=== PATIENT | male | born 1975 | race American Indian/Alaskan Native ===

== ENCOUNTER 2017-10-10 07:22 | Inpatient (IN) | payer OTHER ==
[2017-10-10 08:30] LABS: Basophils # (Auto) 0.1 K/mm3 (0.0-0.1); Basophils % (Auto) 0.8 % (0.0-1.8); Eosinophils # (Auto) 0.1 K/mm3 (0.0-0.4); Eosinophils % (Auto) 0.7 % (0.0-4.3); Hematocrit 45.7 % (35.5-45.6); Hemoglobin 16.2 gm/dl (11.8-15.2); Lymphocytes # (Auto) 2.3 K/mm3 (1.2-5.4); Lymphocytes % (Auto) 23.8 % (13.4-35.0); Mean Corpuscular HGB Conc 36 % (32-34); Mean Corpuscular Hemoglobin 31 pg (28-32); Mean Corpuscular Volume 87 fl (84-94); Monocytes # (Auto) 0.6 K/mm3 (0.0-0.8); Monocytes % (Auto) 6.7 % (0.0-7.3); Platelet Count 315 K/mm3 (140-440); Red Blood Count 5.24 M/mm3 (3.65-5.03); Red Cell Distribution Width 12.6 % (13.2-15.2)
[2017-10-10 08:44] LABS: Alanine Aminotransferase 43 units/L (7-56); Albumin 4.5 g/dL (3.9-5); BUN/Creatinine Ratio 15; Blood Urea Nitrogen 9 mg/dL (9-20); Calcium 9.2 mg/dL (8.4-10.2); Hemolysis Index 41
[2017-10-10] MEDS ORDERED: TORADOL IV ONE (08:56)
[2017-10-10] MEDS ORDERED: NACL 0.9% 1000 ML 1,000 ML IV ONE (08:56)
[2017-10-10] MEDS ORDERED: CATAPRES PO ONE (08:56)
[2017-10-10] MEDS ORDERED: ZOFRAN IV ONE (08:56)
[2017-10-10] MEDS ORDERED: NORCO 5/325 PO ONE (08:56)
--- NOTE | 2017-10-10 10:02 | Cat Scan Report ---
CT ABDOMEN PELVIS WITH CONTRAST: HISTORY: Chronic umbilical hernia, pain, nausea and vomiting. COMPARISON: none. TECHNIQUE: Helical CT in 1.25mm intervals following IV contrast. Sagittal and coronal reconstructions. FINDINGS: Lung bases: Normal. Liver: Mild fatty changes noted throughout the liver. No evidence for mass or surface nodularity. Biliary system: Normal. Pancreas: Normal. Spleen: Normal. Kidneys/ureters/bladder: Normal. Adrenal glands: Normal. Aorta: Normal. Intestines: Normal. Appendix: Normal. Pelvic viscera: Normal. Ascites: None. Adenopathy: None. Musculoskeletal: An umbilical hernia with a 2.0 cm neck is identified which contains omentum. The hernia sac measures 4.2 cm in diameter. No bowel loops are incorporated. IMPRESSION: Umbilical hernia containing fat as described. Mild hepatic steatosis. No acute inflammatory process is appreciated.
--- NOTE | 2017-10-10 10:07 | Cat Scan Report ---
FINAL REPORT EXAM: CT HEAD/BRAIN WO CON HISTORY: trejo, htn TECHNIQUE: CT of the Head without IV contrast. PRIORS: None currently available. FINDINGS: Heterogeneous area of decreased attenuation noted within the right cerebellar hemisphere on series 2:10 may be related to ischemia or edema and mass. There is an irregular soft tissue density within the low-attenuation area which is suspicious for mass. There may be a slight midline shift as the 4th ventricle appears slightly effaced. No other lesions are areas of decreased attenuation identified. There is no hemorrhage. There is no hydrocephalus. Age appropriate drake-white matter attenuation is noted. There is no calvarial fracture. The temporal bones demonstrate aerated mastoid air cells. The middle ears appear unremarkable. Paranasal sinuses are unremarkable. Globes are intact. IMPRESSION: Heterogeneous ill-defined area in the right cerebellar hemisphere. Findings could be related to ischemia or mass. Further imaging with a CT brain with contrast or MRI of the brain with and without contrast if clinically indicated. Salo level II finding report initiated.
[2017-10-10 12:28] LABS: Bilirubin,Urine NEG (Negative); Blood,Urine NEG (Negative); Color,Urine Yellow (Yellow); Mucus,Urine FEW /HPF; Protein,Urine <15 mg/dL mg/dL (Negative); WBC,Urine < 1.0 /HPF (0.0-6.0)
--- NOTE | 2017-10-10 14:01 | Magnetic Resonance Report ---
MRI BRAIN WITH/WITHOUT CONTRAST: History: Abnormal CT brain, stroke, mass. Technique: Multiple T1 and T2 weighted images were obtained in multiple planes. Axial diffusion and gradient imaging was performed. Post contrast T1 images in two planes were obtained following IV gadolinium. Findings: Compared to the CT head without contrast performed earlier the same day. MRI demonstrates a moderate sized area of diffusion restriction in the inferior right cerebellar hemisphere measuring up to 4.5 x 4.9 cm in axial plane. This is consistent with subacute ischemia. There is mild mass effect on the fourth ventricle but no evidence for effacement or hydrocephalus. No additional areas of diffusion restriction are identified. There are scattered foci of increased T2 signal in the periventricular and subcortical white matter which appear advanced for this persons age. This is a nonspecific finding but could be related to chronic small vessel disease or other etiology. No evidence for hemorrhage, mass or extra-axial fluid collection. Ventricular size is normal and symmetric. The basal cisterns are clear. The brainstem and cerebellar hemispheres are within normal limits. The fourth ventricle is midline. The paranasal sinuses and mastoid air cells are well aerated. Normal flow voids are identified in the appropriate vessels at the [place]. No abnormal enhancement is identified following IV gadolinium. Impression: Moderate sized area of subacute ischemia in the right cerebellar hemisphere as described. This appears to involve the posterior, inferior cerebellar artery territory. No evidence for mass or hemorrhage
--- NOTE | 2017-10-10 14:17 | Emergency Department Report ---
ED Headache HPI - General Chief Complaint: Abdominal Pain Stated Complaint: HEADACHE/HIGH BP Time Seen by Provider: 10/10/17 08:44 Source: patient Exam Limitations: no limitations - History of Present Illness Initial Comments: 41 yo a past medical history of tobacco use, hypertension and umbilical hernia presents to the hospital with headache, elevated blood pressure, and abdominal pain with vomiting for the past 2 days. Patient was diagnosed with elevated blood pressure during the ED visit at [place] one year ago. Patient has never taken medication or followed up with her primary care doctor. For the past 3 days patient has had a constant headache to the back of his head that is moderate in intensity. Mild blurred vision reported since yesterday. Patient having intermittent periumbilical abdominal pain and has vomited twice a day over the last 2 days. The patient diarrhea, sick contacts, or recent travel. Focal weakness, numbness, or ataxia Allergies/Adverse Reactions: Allergies No Known Allergies Allergy (Verified 10/10/17 08:02) Home Medications: Ambulatory Orders No Known Home Medications [No Reported Home Medications] 10/10/17 ED Review of Systems ROS: Stated complaint: HEADACHE/HIGH BP Other details as noted in HPI Comment: All other systems reviewed and negative Other: Constitutional: No fevers chills Eyes: As per HPI ENT: No ear pain or throat pain Neck: Denies pain Respiratory: Denies cough wheezing shortness of breath Cardiovascular: Denies chest pain, palpitations, syncope GI: As per HPI : Denies dysuria Musculoskeletal: Denies back pain Skin: Denies rash, lesions, erythema Neurologic: As per HPI Psychiatric: Denies suicidal ideation, hallucinations ED Past Medical Hx - Past Medical History Previous Medical History?: Yes Hx Hypertension: Yes Additional medical history: Hernia - Surgical History Past Surgical History?: No - Social History Smoking Status: Current Every Day Smoker Substance Use Type: None - Medications Home Medications: Home Medications Medication Instructions Recorded Confirmed Last Taken Type No Known Home Medications [No 10/10/17 10/10/17 Unknown History Reported Home Medications] ED Physical Exam - General Limitations: No Limitations - Other Other exam information: General: No limitations, patient is alert in no acute distress Head exam: Atraumatic, normocephalic Eyes exam: Normal appearance, pupils equal reactive to light, extraocular movements intact ENT: Moist mucous membrane, normal oropharynx Neck exam: Normal inspection, full range of motion, no meningismus nontender Respiratory exam: Clear to auscultation bilateral, no wheezes, rales, crackles Cardiovascular: Normal rate and rhythm, normal heart sounds Abdomen: Soft, nondistended, reducible umbilical hernia with mild upper abdominal tenderness. normal bowel sounds, no rebound, or guarding Extremity: Full range of motion normal inspection no deformity Back: Normal Inspection, full range of motion, no tenderness Neurologic: Alert, oriented x3, cranial nerves intact, no motor or sensory deficit, [id number] motion intact Psychiatric: normal affect, normal mood Skin: Warm, dry, intact ED Course Vital Signs 10/10/17 10/10/17 10/10/17 07:56 08:00 08:02 Temperature 98.9 F Pulse Rate 78 71 95 H Respiratory 26 H 24 18 Rate Blood Pressure 204/130 204/120 O2 Sat by Pulse 100 95 100 Oximetry 10/10/17 10/10/17 10/10/17 08:09 08:15 08:30 Temperature 98.7 F Pulse Rate 82 73 Respiratory 22 21 Rate Blood Pressure 204/130 204/130 O2 Sat by Pulse 100 Oximetry 10/10/17 10/10/17 10/10/17 08:46 09:00 09:11 Temperature Pulse Rate 74 79 87 Respiratory 16 17 18 Rate Blood Pressure 192/98 196/98 O2 Sat by Pulse Oximetry 10/10/17 10/10/17 10/10/17 09:14 09:41 09:58 Temperature Pulse Rate Respiratory 18 16 Rate Blood Pressure 192/98 O2 Sat by Pulse 100 100 Oximetry 10/10/17 10/10/17 10/10/17 10:00 10:06 10:16 Temperature Pulse Rate 75 67 Respiratory 17 16 18 Rate Blood Pressure 192/98 217/129 O2 Sat by Pulse 100 100 Oximetry 10/10/17 10/10/17 10/10/17 10:30 10:46 11:00 Temperature Pulse Rate 79 80 Respiratory 25 H 13 22 Rate Blood Pressure 192/98 192/98 168/113 O2 Sat by Pulse 98 98 99 Oximetry 10/10/17 10/10/17 10/10/17 11:24 11:30 11:46 Temperature Pulse Rate 66 62 Respiratory 33 H 12 17 Rate Blood Pressure 168/113 168/113 168/113 O2 Sat by Pulse Oximetry 10/10/17 10/10/17 12:00 13:30 Temperature Pulse Rate 62 Respiratory 15 Rate Blood Pressure 170/108 184/115 O2 Sat by Pulse Oximetry - Reevaluation(s) Reevaluation #1: 10/10/17 15:09 Patient received Clonidine 0.2 with mild reduction in blood pressure. Since initial dose of pain and nausea medication patient has remained asymptomatic. Also received 1 L normal saline ED Medical Decision Making - Lab Data Result diagrams: 10/10/17 08:23 10/10/17 08:23 Lab Results 10/10/17 10/10/17 10/10/17 Range/Units 08:23 08:23 08:44 WBC 9.6 (4.5-11.0) K/mm3 RBC 5.24 H (3.65-5.03) M/mm3 Hgb 16.2 H (11.8-15.2) gm/dl Hct 45.7 H (35.5-45.6) % MCV 87 (84-94) fl MCH 31 (28-32) pg MCHC 36 H (32-34) % RDW 12.6 L (13.2-15.2) % Plt Count 315 (140-440) K/mm3 Lymph % (Auto) 23.8 (13.4-35.0) % [place] % (Auto) 6.7 (0.0-7.3) % Eos % (Auto) 0.7 (0.0-4.3) % Baso % (Auto) 0.8 (0.0-1.8) % Lymph # 2.3 (1.2-5.4) K/mm3 C[place]ay # 0.6 (0.0-0.8) K/mm3 Eos # 0.1 (0.0-0.4) K/mm3 Baso # 0.1 (0.0-0.1) K/mm3 Seg Neutrophils % 68.0 (40.0-70.0) % Seg Neutrophils # 6.5 (1.8-7.7) K/mm3 Sodium 134 L (137-145) mmol/L Potassium 4.1 (3.6-5.0) mmol/L Chloride 93.3 L (98-107) mmol/L Carbon Dioxide 27 (22-30) mmol/L Anion Gap 18 mmol/L BUN 9 (9-20) mg/dL Creatinine 0.6 L (0.8-1.5) mg/dL Estimated GFR > 60 ml/min BUN/Creatinine Ratio 15 % Glucose 124 H (75-100) mg/dL Calcium 9.2 (8.4-10.2) mg/dL Total Bilirubin 0.70 (0.1-1.2) mg/dL AST 28 (5-40) units/L ALT 43 (7-56) units/L Alkaline Phosphatase 101 (35-129) units/L Troponin T (0.00-0.029) ng/mL Total Protein 8.4 H (6.3-8.2) g/dL Albumin 4.5 (3.9-5) g/dL Albumin/Globulin Ratio 1.2 % Lipase 73 H (13-60) units/L Urine Color (Yellow) Urine Turbidity (Clear) Urine pH (5.0-7.0) Ur Specific [place] (1.003-1.030) Urine Protein (Negative) mg/dL Urine Glucose (UA) (Negative) mg/dL Urine Ketones (Negative) mg/dL Urine Blood (Negative) Urine Nitrite (Negative) Urine Bilirubin (Negative) Urine Urobilinogen (<2.0) mg/dL Ur Leukocyte Esterase (Negative) Urine WBC (Auto) (0.0-6.0) /HPF Urine RBC (Auto) (0.0-6.0) /HPF U Epithel Cells (Auto) (0-13.0) /HPF Urine Mucus /HPF 10/10/17 10/10/17 Range/Units 08:44 12:18 WBC (4.5-11.0) K/mm3 RBC (3.65-5.03) M/mm3 Hgb (11.8-15.2) gm/dl Hct (35.5-45.6) % MCV (84-94) fl MCH (28-32) pg MCHC (32-34) % RDW (13.2-15.2) % Plt Count (140-440) K/mm3 Lymph % (Auto) (13.4-35.0) % [place] % (Auto) (0.0-7.3) % Eos % (Auto) (0.0-4.3) % Baso % (Auto) (0.0-1.8) % Lymph # (1.2-5.4) K/mm3 [place]ay # (0.0-0.8) K/mm3 Eos # (0.0-0.4) K/mm3 Baso # (0.0-0.1) K/mm3 Seg Neutrophils % (40.0-70.0) % Seg Neutrophils # (1.8-7.7) K/mm3 Sodium (137-145) mmol/L Potassium (3.6-5.0) mmol/L Chloride (98-107) mmol/L Carbon Dioxide (22-30) mmol/L Anion Gap mmol/L BUN (9-20) mg/dL Creatinine (0.8-1.5) mg/dL Estimated GFR ml/min BUN/Creatinine Ratio % Glucose (75-100) mg/dL Calcium (8.4-10.2) mg/dL Total Bilirubin (0.1-1.2) mg/dL AST (5-40) units/L ALT (7-56) units/L Alkaline Phosphatase (35-129) units/L Troponin T < 0.010 (0.00-0.029) ng/mL Total Protein (6.3-8.2) g/dL Albumin (3.9-5) g/dL Albumin/Globulin Ratio % Lipase (13-60) units/L Urine Color Yellow (Yellow) Urine Turbidity Clear (Clear) Urine pH 6.0 (5.0-7.0) Ur Specific [place] > 1.059 H (1.003-1.030) Urine Protein <15 mg/dl (Negative) mg/dL Urine Glucose (UA) Neg (Negative) mg/dL Urine Ketones Tr (Negative) mg/dL Urine Blood Neg (Negative) Urine Nitrite Neg (Negative) Urine Bilirubin Neg (Negative) Urine Urobilinogen 4.0 (<2.0) mg/dL Ur Leukocyte Esterase Neg (Negative) Urine WBC (Auto) < 1.0 (0.0-6.0) /HPF Urine RBC (Auto) 1.0 (0.0-6.0) /HPF U Epithel Cells (Auto) < 1.0 (0-13.0) /HPF Urine Mucus Few /HPF - EKG Data -: EKG Interpreted by Sd EKG shows normal: sinus rhythm, axis (40), QRS complexes (105), ST-T waves ( eraly repol, no stemi) Rate: normal (72) - EKG Data When compared to previous EKG there are: previous EKG unavailable - Radiology Data Radiology results: report reviewed read by radiologist Abdomen and pelvis with IV contrast: Umbilical hernia containing fat. Mild hepatic steatosis. No acute inflammatory process is suspected CT head: Ill defined heterogeneous area in the right cerebellar hemisphere. Findings could be related to ischemia or mass. Further imaging recommended if clinically indicated. MRI with and without contrast: Moderate size area of subacute ischemia in the right cerebellar hemisphere measuring 4.5 x 4.9 cm in the axial plane. This appears to involve the posterior inferior cerebellar artery territory. No Evidence of mass or hemorrhage - Medical Decision Making Subacute stroke not a tpa candidate since subacute cva MRI confirms the patient had signs of subacute infarct and not a mass Patient had a cerebral stroke risk factors including tobacco use hypertension with medication noncompliance and failure to follow up Nonfocal neuro exam Patient needs to see clonidine but further blood pressure reduction would not be attempted at this time given findings of subacute stroke. hospitalist to manage furthter Aspirin provided Abdominal pain/nausea vomiting Controlled with meds in the ED No acute abdominal findings Hospitalist informed for admission - Differential Diagnosis CVA, stroke, hemorrhage, mass, gastritis, pancreatitis, biliary colic Critical Care Time: No Critical care attestation.: If time is entered above; I have spent that time in minutes in the direct care of this critically ill patient, excluding procedure time. ED Disposition Clinical Impression: CVA (cerebral vascular accident), Cerebellar stroke, Uncontrolled hypertension , Noncompliance with medication regimen, Tobacco use Disposition: -09 OP ADMIT IP TO THIS HOSP Is pt being admited?: Yes Condition: Stable Time of Disposition: 14:16 (Dr Kong/hosp) - Assessment Assessment Interval: Baseline - Level of Consciousness 1a. Level of Consciousness: alert - LOC Questions 1b. LOC Questions: answers correctly - LOC Command 1c. LOC Commands: performs tasks correctly - Best Gaze 2. Best Gaze: normal - Visual 3. Visual: no visual loss - Facial Palsy 4. Facial Palsy: normal symmetrical movement - Motor Arm 5b. Motor Arm Right: no drift 5a. Motor Arm Left: no drift - Motor Leg 6a. Motor Leg Left: no drift 6b. Motor Leg Right: no drift - Limb Ataxia 7. Limb Ataxia: absent - Sensory 8. Sensory: normal - Best Language 9. Best Language: no aphasia - Dysarthria 10. Dysarthria: normal - Extinction and Inattention 11. Extinction/Inattention: no abnormality - Scoring Total Score: 0 Stroke Severity: No Stroke Symptoms
[2017-10-10] MEDS ORDERED: ASPIRIN PO ONE (14:50)
[2017-10-10] MEDS ORDERED: SODIUM CHLORIDE FLUSH SYRINGE 10 ML IV PRN (15:08)
[2017-10-10] MEDS ORDERED: DULCOLAX PR PRN (15:08)
[2017-10-10] MEDS ORDERED: MILK OF MAGNESIA PO PRN (15:08)
[2017-10-10] MEDS ORDERED: REGLAN PO PRN (15:08)
[2017-10-10] MEDS ORDERED: TYLENOL PO PRN (15:08)
[2017-10-10] MEDS ORDERED: ZOFRAN IV PRN (15:08)
[2017-10-10] MEDS ORDERED: PHENERGAN PR PRN (15:08)
[2017-10-10] MEDS ORDERED: PROVENTIL IH PRN (15:23)
--- NOTE | 2017-10-10 15:31 | History and Physical Report ---
History of Present Illness Chief complaint: My head hurts, My stomach hurts History of present illness: 41 YO Male with HTN, Nicotine Dependence, Medication noncompliance presents to ED for evaluation. Pt states that he has experienced a severe headache, hgh blood pressure, and abdominal pain over the past 2 days. Pt noncompliant with outpatient antihypertensive medication, and lost to outpatient f/u care. Pt states that he has a posterior headache, that is severe, and is associated with blurred vision over the past 1 day. Pt also reports abdomnal pain that is periumbilical, associated with 2 episodes of vomiting. Pt denies fever, chills, CP, Palpitations, Diarrhea, BRBPR, recent ill contacts, ingestion of food/water from new/different sources, ataxia, recent ill contacts, prolonged travel/ immobility, leg swelling, calf pain, individual/family history of DVT/PE, or sudden cardiac . Pt seen and evaluated in ED and found to have Hypertensive emergency with blood pressure of 217/129, as well as R PICA CVA. Pt outside therapeutic window for TPA. Pt admitted to telemetry and treated IAW stroke protocol. Past History Past Medical History: hypertension, other (Noncompliance, ) Past Surgical History: No surgical history, Other (reviewed) Social history: , lives with family, smoking. denies: alcohol abuse, prescription drug abuse, IV drug use Family history: hypertension Medications and Allergies Allergies Allergy/AdvReac Type Severity Reaction Status Date / Time No Known Allergies Allergy Verified 10/10/17 08:02 Home Medications Medication Instructions Recorded Confirmed Last Taken Type No Known Home Medications [No 10/10/17 10/10/17 Unknown History Reported Home Medications] Active Meds: Active Medications Acetaminophen (Tylenol) 650 mg PO Q4H PRN PRN Reason: Pain, Mild (1-3) Albuterol (Proventil) 2.5 mg IH Q3HRT PRN PRN Reason: Shortness Of Breath Aspirin (Aspirin) 325 mg PO QDAY MICA Bisacodyl (Dulcolax) 10 mg LA QDAY PRN PRN Reason: Constipation Magnesium Hydroxide (Milk Of Magnesia) 30 ml PO Q4H PRN PRN Reason: Constipation Metoclopramide HCl (Reglan) 10 mg PO Q6H PRN PRN Reason: Nausea And Vomiting Ondansetron HCl (Zofran) 4 mg IV Q8H PRN PRN Reason: N/V unrelieved by Reglan Promethazine HCl (Phenergan) 25 mg LA Q6H PRN PRN Reason: Nausea And Vomiting Sodium Chloride (Sodium Chloride Flush Syringe 10 Ml) 10 ml INJ PRN PRN PRN Reason: LINE FLUSH Review of Systems Constitutional: no weight loss, no weight gain, no fever, no chills, no sweats, no anorexia Ears, nose, mouth and throat: no ear pain, no ear discharge, no tinnitis, no decreased hearing, no nose pain, no nasal congestion, no nasal discharge Cardiovascular: no chest pain, no orthopnea, no palpitations, no rapid/ irregular heart beat, no edema, no syncope, no lightheadedness Respiratory: no cough, no cough with sputum, no excessive sputum, no hemoptysis , no shortness of breath, no dyspnea on exertion Gastrointestinal: abdominal pain, vomiting, no change in bowel habits, no hematemesis, no coffee ground emesis, no BRBPR, no melena, no hematochezia, no loss of appetite, no early satiety Genitourinary Male: no dysuria, no hematuria, no flank pain, no discharge, no urinary frequency, no urinary hesitancy Rectal: no pain, no incontinence, no bleeding Musculoskeletal: no neck stiffness, no neck pain, no shooting arm pain, no arm numbness/tingling, no low back pain, no shooting leg pain Integumentary: no rash, no pruritis, no redness, no sores, no wounds, no jaundice Neurological: headaches, no transient paralysis, no paralysis, no weakness, no parathesias, no numbness, no tingling, no seizures Psychiatric: no memory loss, no change in sleep habits, no sleep disturbances, no insomnia, no hypersomnia, no change in appetite, no change in libido Endocrine: no cold intolerance, no polyphagia, no excessive thirst, no polydipsia, no polyuria, no nocturia Hematologic/Lymphatic: no easy bruising, no easy bleeding, no lymphadenopathy, no lymphedema Allergic/Immunologic: no urticaria, no allergic rhinitis, no wheezing, no persistent infections, no anaphylaxis, no angioedema Exam - Constitutional Vitals: Temp Pulse Resp BP Pulse Ox 98.7 F 62 15 184/115 99 10/10/17 08:09 10/10/17 12:00 10/10/17 12:00 10/10/17 13:30 10/10/17 11:00 General appearance: Present: mild distress - EENT Eyes: Present: PERRL ENT: hearing intact, clear oral mucosa - Neck Neck: Present: supple, normal ROM - Respiratory Respiratory effort: normal Respiratory: bilateral: CTA - Cardiovascular Heart Sounds: Present: S1 & S2. Absent: rub, click - Extremities Extremities: pulses symmetrical, No edema Peripheral Pulses: within normal limits - Abdominal General gastrointestinal: Present: soft, non-tender, non-distended, normal bowel sounds Male genitourinary: Present: normal - Integumentary Integumentary: Present: clear, warm, dry - Musculoskeletal Musculoskeletal: gait normal, strength equal bilaterally - Psychiatric Psychiatric: appropriate mood/affect, intact judgment & insight - Neurologic Neurologic: moves all extremities, no gait normal Results - Labs CBC & Chem 7: 10/10/17 08:23 10/10/17 08:23 Labs: Abnormal lab results 10/10/17 10/10/17 10/10/17 Range/Units 08:23 08:23 08:44 RBC 5.24 H (3.65-5.03) M/mm3 Hgb 16.2 H (11.8-15.2) gm/dl Hct 45.7 H (35.5-45.6) % MCHC 36 H (32-34) % RDW 12.6 L (13.2-15.2) % Sodium 134 L (137-145) mmol/L Chloride 93.3 L (98-107) mmol/L Creatinine 0.6 L (0.8-1.5) mg/dL Glucose 124 H (75-100) mg/dL Total Protein 8.4 H (6.3-8.2) g/dL Lipase 73 H (13-60) units/L Ur Specific [place] (1.003-1.030) 10/10/17 Range/Units 12:18 RBC (3.65-5.03) M/mm3 Hgb (11.8-15.2) gm/dl Hct (35.5-45.6) % MCHC (32-34) % RDW (13.2-15.2) % Sodium (137-145) mmol/L Chloride (98-107) mmol/L Creatinine (0.8-1.5) mg/dL Glucose (75-100) mg/dL Total Protein (6.3-8.2) g/dL Lipase (13-60) units/L Ur Specific [place] > 1.059 H (1.003-1.030) Assessment and Plan - Patient Problems (1) CVA (cerebral vascular accident) Current Visit: Yes Status: Acute Qualifiers: Precerebral and cerebral artery: posterior cerebral artery Laterality of affected vessel: right Plan to address problem: Stroke Protocol: CT head, MRI Brain, MRA Brain, Echo, Carotid Doppler, Antiplatelet therapy, PT/OT/ Speech Therapy, lipid panel (2) Hypertensive emergency Current Visit: Yes Status: Acute Plan to address problem: Permissive hypertension overnight. Pt systolic 217 on admission. Gaol systolic overnight 160-180 to maintain cerebral perfusion, hold oral antihypertensive therapy for now. IV hydralazine prn for systolic above 200. (3) Abdominal pain Current Visit: Yes Status: Acute Qualifiers: Abdominal location: periumbilical Qualified Code(s): R10.33 - Periumbilical pain Plan to address problem: CT Abdomen Pelvis, omental hernia. diet as tolerated, supportive care, repeat physical exam. (4) Noncompliance with medication regimen Current Visit: Yes Status: Acute Plan to address problem: Pt counseled, (5) DVT prophylaxis Current Visit: Yes Status: Acute
--- NOTE | 2017-10-10 16:32 | Magnetic Resonance Report ---
FINAL REPORT EXAM: MR MRA/MRV HEAD WO CON HISTORY: stroke TECHNIQUE: MRA of the Head without IV contrast. PRIORS: None currently available. FINDINGS: Slight lobulated irregularity of both A1 and M1 segments. Similar irregularity noted in both P segments. Irregularity of the cavernous carotids and the right less dominant vertebral artery. Lobulated irregularity of both vertebral arteries. The less dominant right vertebral artery is more notable compared to left. No aneurysm. No dissection. No hemodynamically significant stenosis. IMPRESSION: Overall lobulated irregularity of the anterior and posterior circulations suggests vasculitis. Please correlate clinically.
[2017-10-11 07:33] LABS: Chol/HDL Ratio 9.12 %
[2017-10-11] MEDS: APRESOLINE PO SCH ×2 (08:47→13:30)
[2017-10-11] MEDS ORDERED: NORMODYNE IV PRN ×2 (09:00→12:56)
[2017-10-11] MEDS ORDERED: ASPIRIN PO SCH (10:00)
[2017-10-11] MEDS ORDERED: NORMODYNE 200 MG in D5W 160 ML IV ONE (12:56)
[2017-10-11] MEDS ORDERED: BREVIBLOC DRIP 2.5GM/250ML 2.5 GM/250 ML BAG IV SCH (13:00)
[2017-10-11] MEDS ORDERED: APRESOLINE IV PRN (13:38)
--- NOTE | 2017-10-11 13:43 | Consultation ---
History of Present Illness Consult date: 10/11/17 Requesting physician: YARY JENKINS Reason for Consult: cerebellar stroke Chief complaint: headache, dizziness, nausea and vomiting History of present illness: This 41-year-old right-handed -Luxembourger male was admitted by Dr. Kong who noted yesterday: "Pt states that he has experienced a severe headache, hgh blood pressure, and abdominal pain over the past 2 days. Pt noncompliant with outpatient antihypertensive medication, and lost to outpatient f/u care. Pt states that he has a posterior headache, that is severe, and is associated with blurred vision over the past 1 day. Pt also reports abdomnal pain that is periumbilical, associated with 2 episodes of vomiting. Pt denies fever, chills, CP, Palpitations, Diarrhea, BRBPR, recent ill contacts, ingestion of food/water from new/different sources, ataxia, recent ill contacts, prolonged travel/ immobility, leg swelling, calf pain, individual/family history of DVT/PE, or sudden cardiac . Pt seen and evaluated in ED and found to have Hypertensive emergency with blood pressure of 217/129, as well as R PICA CVA. Pt outside therapeutic window for TPA. Pt admitted to telemetry and treated IAW stroke protocol." He states Tuesday evening he developed occipital headache with nausea and emesis. The emesis briefly helped the headache but then the headache recurred. He had associated lightheadedness but has been better today though later developed sweating and nausea and emesis during the examination. He has had no numbness or tingling or difficulty swallowing or speaking. He thinks dizziness and vertigo today were temporarily caused by an IV blood pressure medicine which Dr. Jenkins thinks must have been the labetalol. MRI showed a fairly large 4.9 x 4.5 cm right cerebellar acute infarct with some scattered peripheral old lacunae and evidence of beading from vasculitis and multiple arterial territories on MRA of the head. I discussed the need for neurosurgical backup because the large cerebellar infarct with Dr. Jenkins contacted [facility]. The neuro research quality assurance specialist Dr. Sellers at [facility] spoke to me and I explained the MRI and MRA findings and history though I had not yet seen the patient at that point. He agreed to accept him in transfer to their neuro ICU. Past History Past Medical History: hypertension (was temporarily given medications but had trouble connecting with urgent care to keep getting them. Mentioned lisinopril. ), other (Noncompliance, ) Past Surgical History: No surgical history, Other (reviewed) Social history: , lives with family, smoking (0.5 packs per day), other ( uses marijuana daily but no alcohol or other illicit drugs. Works at a restaurant.). denies: alcohol abuse, prescription drug abuse, IV drug use Family history: hypertension (brother and both grandmothers), stroke (brother), other (childhood epilepsy in his sister) Medications and Allergies Allergies Allergy/AdvReac Type Severity Reaction Status Date / Time No Known Allergies Allergy Verified 10/10/17 08:02 Home Medications Medication Instructions Recorded Confirmed Last Taken Type No Known Home Medications [No 10/10/17 10/10/17 Unknown History Reported Home Medications] Active Meds: Active Medications Acetaminophen (Tylenol) 650 mg PO Q4H PRN PRN Reason: Pain, Mild (1-3) Last Admin: 10/11/17 02:46 Dose: 650 mg Albuterol (Proventil) 2.5 mg IH Q3HRT PRN PRN Reason: Shortness Of Breath Aspirin (Aspirin) 325 mg PO QDAY [facility] Last Admin: 10/11/17 09:00 Dose: 325 mg Atorvastatin Calcium (Lipitor) 40 mg PO QHS [facility] Bisacodyl (Dulcolax) 10 mg WI QDAY PRN PRN Reason: Constipation Hydralazine HCl (Apresoline) 50 mg PO Q8HR [facility] Last Admin: 10/11/17 13:30 Dose: 50 mg Labetalol HCl 200 mg/ Dextrose 200 mls @ 120 mls/hr IV ONCE ONE; Protocol Stop: 10/11/17 14:35 Labetalol HCl (Normodyne) 10 mg IV Q4H PRN PRN Reason: Hypertension Magnesium Hydroxide (Milk Of Magnesia) 30 ml PO Q4H PRN PRN Reason: Constipation Metoclopramide HCl (Reglan) 10 mg PO Q6H PRN PRN Reason: Nausea And Vomiting Ondansetron HCl (Zofran) 4 mg IV Q8H PRN PRN Reason: N/V unrelieved by Reglan Last Admin: 10/11/17 13:29 Dose: 4 mg Promethazine HCl (Phenergan) 25 mg WI Q6H PRN PRN Reason: Nausea And Vomiting Sodium Chloride (Sodium Chloride Flush Syringe 10 Ml) 10 ml IV PRN PRN PRN Reason: LINE FLUSH Review of Systems All systems: negative Constitutional: other (headaches in the past without nausea, frontal or occipital but not usually dizziness. Not aware of any snoring and not sleepy during the day. Memory intact.) Physical Examination - Vital Signs Vital Signs: Vital Signs Pulse Resp Pulse Ox 78 26 H 100 10/10/17 07:56 10/10/17 07:56 10/10/17 07:56 - Physical Exam Narrative exam: General Appearance: well developed but overweight (per BMI) late 30s - [place] male lying in bed, at times dizzy.. HEENT: atraumatic, normocephalic; no bruits, 2+ Lawanda without soreness or induration or enlargement, sclerae nonicteric. Oropharynx pink and moist. Visible sweat developed over his forehead and scalp with dizziness and became nauseated with vomiting after I had him walk. He stated he had been able to walk without incident to the nurse's station today earlier. Neck: supple, no bruits. Heart: no murmur or extra sounds. Extremities: no clubbing, cyanosis or edema. 2+ dorsalis pedis pulses bilaterally. Neurologic Exam: Mental Status: Awake, alert, oriented X 3, speech is clear, names pen and point of pen, and abstracts well. Names President and Prism Inspector, serial 7's with several errors and initially gives 5+7 = 13 then corrects himself to 12, no right-left confusion, gets one of 3 objects at 3 minutes, spells WORLD backwards correctly. Cranial Nerves: melissa full, no papilledema, SVPs present, PERRLA, EOMs full without nystagmus or diplopia, facial sensation intact to pinprick and light touch, no facial weakness, [place] is midline, palate rises symmetrically to phonation but did not test gags due to emesis, shoulder shrug is 5 X 2, tongue protrudes midline. Cerebellar: finger to nose and heel to melendrez are intact, tandem requires wall support and is associated with veering to either direction. Sensory: intact to light touch, pinprick, and vibrations. Double simultaneous stimulation is intact. Motor Exam Upper Extremities: no drift or pronation, Cristina intact. Medical Driver are 5 X 2, tone is normal. No atrophy or fasciculations are noted visually. Motor Exam Lower Extremities: walks well on heels and toes but did not have them hop due to balance issues. Quadriceps, gastrocnemius and anterior tibials are 5 bilaterally Cristina intact. Tone is normal. No atrophy or fasciculations are noted visually. Reflexes: Palmomental, snout and jaw jerk are negative. Triceps are 2, biceps and brachioradialis are trace bilaterally. Pily's is negative bilaterally. Knee jerks are 2+ and ankle jerks are 2 bilaterally without clonus. Toes are upgoing on the right and downgoing on the left to Babinski testing. Results - Laboratory Findings CBC and BMP: 10/10/17 08:23 10/10/17 08:23 Abnormal Lab Findings: Abnormal Labs 10/10/17 10/10/17 10/10/17 08:23 08:23 08:44 RBC 5.24 H Hgb 16.2 H Hct 45.7 H MCHC 36 H RDW 12.6 L Sodium 134 L Chloride 93.3 L Creatinine 0.6 L Glucose 124 H Total Protein 8.4 H Cholesterol LDL Cholesterol Direct HDL Cholesterol Lipase 73 H Ur Specific [place] 10/10/17 10/11/17 12:18 06:46 RBC Hgb Hct MCHC RDW Sodium Chloride Creatinine Glucose Total Protein Cholesterol 228 H LDL Cholesterol Direct 180 H HDL Cholesterol 25 L Lipase Ur Specific [place] > 1.059 H Assessment and Plan Impression: 1. Right cerebellar acute infarct, moderate to large 2. Hypertension, malignant 3. Old lacunar strokes 4. Cerebral vasculitis Plan: 1. Discuss plan with Dr. Sellers of [place] who suggested labetalol drip. Dr. Jenkins has also ordered when necessary additional IV boluses of labetalol. 2. Transfer to [place], hopefully there are neuro ICU where they will have neurosurgical backup and expert neurologists to pursue causes of vasculitis. 45 minutes critical care time spent with this patient including discussion with Dr. Sellers of [facility] and Dr. Jenkins. Thank you for an interesting consultation on this pleasant late 30s male.
[2017-10-11] MEDS ORDERED: ZOFRAN IV PRN (13:47)
--- NOTE | 2017-10-11 13:47 | Discharge Summary ---
Providers - Providers Date of Admission: 10/10/17 15:03 Attending physician: YARY QUIJANO MD 10/10/17 15:08 Occupational Therapy Evaluate and Treat [CONS] Routine Comment: Reason For Exam: Neuro deficits Physical Therapy Evaluation and Treat [CONS] Routine Comment: Reason For Exam: Neuro deficits 10/11/17 08:25 Consult to Physician [CONS] Routine Consulting Provider: DEBBI VASQUEZ Reason For Exam: CVA Place consult to:: Dr. Vasquez Notified:: Tamir RN Phone number called:: [phone] Was contact made?: Yes If yes, spoke with:: Message with consult info left for Amanda Saulo;pt added to physician list Time called:: 08:46 10/11/17 12:43 Consult to Physician [CONS] Routine Consulting Provider: SEYMOUR ESCALONA Reason For Exam: hypertensive emergency Place consult to:: Notified:: yes via text Phone number called:: [phone] Time called:: 13:42 Primary care physician: PARTNER MANAGEMENT CONSULTANT Hospitalization Condition: Stable Disposition: DC/TX-02 SHRT-[facility]M GEN HOSP IP Time spent for discharge: 35 mins Exam - Constitutional Vitals: Temp Pulse Resp BP Pulse Ox 67.8 F L 87 20 179/100 100 10/11/17 11:42 10/11/17 13:36 10/11/17 11:42 10/11/17 13:36 10/11/17 11:42 Plan Activity: advance as tolerated, fall precautions Diet: low cholesterol Special Instructions: record daily weights, record daily BP diary, record blood sugar diary, smoking cessation Additional Instructions: Follow up on discharge per [facility]. Follow up with: PRIMARY CAREMD [Primary Care Provider] - 3-5 Days
[2017-10-11] MEDS ORDERED: NORMODYNE 200 MG in D5W 160 ML IV SCH (15:00)
[2017-10-11 17:08] VITALS: BP 156/115
== END 2017-10-11 16:44 | disposition short-term general hospital (02) | DRG 65 ==
LOC: ED 07:22 → 4A 15:03 → 2B-ACE 15:03 → CC1 10-11 15:07
PROVIDERS: ADMIT Internal Medicine; ATTEND Internal Medicine
DX: I63.9 Cerebral infarction, unspecified (principal); I16.1 Hypertensive emergency; I10 Essential (primary) hypertension; Z91.14 Patient's other noncompliance with medication regimen; F17.200 Nicotine dependence, unspecified, uncomplicated; Z82.49 Family history of ischemic heart disease and other diseases of the circulatory system; Z82.3 Family history of stroke
CPT/HCPCS: 36415; 70450; 70544; 70553; 74177; 80053; 80061; 81001; 82962; 83690; 84484; 85025; 93005; 93010; 96374; 96375; A9577; J1885; J2405; J7030; Q9967